=== PATIENT | female | born 1950 | race Two or more races ===

== ENCOUNTER 2017-06-06 12:27 | Emergency (ER) | payer MEDICARE, OTHER ==
[~2017-06-06] VITALS: Ht 160 cm; Wt 76.2 kg
[~2017-06-06 12:27] MED LIST: ERGO400C; HUM10VIA3; TRAM50TA2 PO
--- NOTE | 2017-06-06 12:45 | NUR ---
RICARDO [id number] FROM HOME FOR LOWER BACK PAIN, NO TRAUMA OR INJURY REPORTED. PT REPOTRS PAIN RADIATING TO LOWER EXTREMITY. SEEN BY CLAUDY. WATSON. SAFETY AND COMFORT MEASURES PROVIDED. WILL MONITOR.
[2017-06-06] MEDS ORDERED: MORPHINE SULFATE INJ 2 MG/ML DISP.SYRIN IM ONE (13:00)
[2017-06-06] MEDS ORDERED: ONDANSETRON 4 MG TAB.RAPDIS SL ONE (13:00)
[2017-06-06] MEDS ORDERED: MORPHINE SULFATE INJ 4 MG/ML DISP.SYRIN ONE (13:10)
[2017-06-06] MEDS ORDERED: ONDANSETRON 4 MG TAB.RAPDIS ONE (13:10)
--- NOTE | 2017-06-06 13:45 | NUR ---
PT TAKEN TO CT.
[2017-06-06 14:57] VITALS: BP 123/80
--- NOTE | 2017-06-06 14:58 | NUR ---
Patient discharged to home in stable condition. Written and verbal after care instructions given. Patient verbalizes understanding of instruction.
== END 2017-06-06 14:58 | disposition home or self-care (01) ==
LOC: ER 12:28
DX: M54.41 Lumbago with sciatica, right side (principal); E11.9 Type 2 diabetes mellitus without complications; M51.36 Other intervertebral disc degeneration, lumbar region; Z88.0 Allergy status to penicillin; Z79.4 Long term (current) use of insulin
CPT/HCPCS: 72131; 96372; 99284; A4606; J2270; Q0162; Z7610